=== PATIENT | female | born 1935 | race Caucasian/White ===

== ENCOUNTER 2017-09-21 22:59 | Emergency (ER) | payer OTHER, BC ==
[~2017-09-21] VITALS: Ht 165.1 cm; Wt 50.0 kg
[~2017-09-21 22:59] MED LIST: ASPIR 8181 M1 PO; COLCRYS0.6 MG PO; COREG12.5 M1 PO; COREG6.25 M1 PO; HYDROCHLOROTHIA25 MG PO; LOW DOSE ASPIRI81 M2 PO; MULTIVITAMIN1 EAC2 PO; OMEGA 3-6-91200 MG PO; RECLAST5 MG/100 M IV; SUPER CALCIUM600 MG PO; TYLENOL REGULA325 MG PO; VIT B; VIT D; VOLTAREN 1% GE100 GM TP; ZOCOR20 MG PO
[2017-09-21 23:51] LABS: HEMOGLOBIN 13.5 G/DL (11.9-15.5); MCH 31.1 PG (29.0-34.0); MCHC 33.8 G/DL (30.0-36.0); MCV 92.2 FL (83-99); PLATELET COUNT 163 K/uL (156-360); RBC DIS.WIDTH-CV 14.5 % (11.8-14.6); RBC DIS.WIDTH-SD 49.3 % (39-53); RED BLOOD COUNT 4.34 M/uL (3.80-5.20); WHITE BLOOD COUNT 7.5 K/uL (4.1-10.2)
[2017-09-22 00:03] LABS: ALBUMIN 3.1 g/dL (3.2-4.8)
[2017-09-22 00:04] LABS: CHLORIDE 103 mEq/L (99-109); POTASSIUM 3.9 mEq/L (3.7-5.4); SODIUM 139 mEq/L (136-147)
[2017-09-22 00:06] LABS: GLUCOSE 104 mg/dL (70-99); TOTAL PROTEIN 6.5 g/dL (6.4-8.3)
[2017-09-22 00:08] LABS: TOTAL BILIRUBIN 0.7 mg/dL (0.0-1.0)
[2017-09-22 00:09] LABS: ALKALINE PHOSPHATASE 113 IU/L (3-129)
[2017-09-22 00:10] LABS: CREATININE 0.9 mg/dL (0.6-1.3); GFR ESTIMATE (CALCULATED) > 59 mL/min/
[2017-09-22 00:11] LABS: AST (GOT) 24 IU/L (2-34); UREA NITROGEN (BUN) 23 mg/dL (9-23)
[2017-09-22 00:12] LABS: TROP-I INTERPRETATION NEGATIVE; TROPONIN-I 0.02 ng/mL (0.0-0.30)
[2017-09-22 00:13] LABS: ALT (GPT) 16 IU/L (3-49)
[2017-09-22 02:39] LABS: APPEARANCE SL.HAZY ((CLEAR)); BILIRUBIN NEGATIVE; BLOOD NEGATIVE; COLOR YELLOW ((YELLOW)); GLUCOSE (STRIP) NEGATIVE; KETONES NEGATIVE; LEUKOCYTES TRACE; NITRITE NEGATIVE; PROTEIN (STRIP) NEGATIVE; SPECIFIC GRAVITY 1.019 (1.000-1.030)
[2017-09-22 02:47] LABS: BACTERIA RARE /HPF; EPITHELIAL CELLS RARE /HPF; HYALINE CASTS 0-5 /LPF; MUCUS TRACE /LPF; UCUL ADDED? NO; WHITE BLOOD CELLS 0-5 /HPF (0-5)
[2017-09-22] MEDS ORDERED: AMOXICILLIN500 MG PO (02:59)
[2017-09-22] MEDS ORDERED: NYSTATIN100000 UN1 PO (02:59)
[2017-09-22 03:19] VITALS: BP 142/77
[2017-09-22 08:20] LABS: THYROTROPIN (TSH) 3.2 MIU/L (0.4-5.5)
== END 2017-09-22 03:33 | disposition home or self-care (01) ==
LOC: EME 22:59
PROVIDERS: Emergency Medicine
DX: R41.82 Altered mental status, unspecified (principal); R53.1 Weakness; R29.6 Repeated falls; R53.83 Other fatigue; R91.8 Other nonspecific abnormal finding of lung field; K05.10 Chronic gingivitis, plaque induced; B37.0 Candidal stomatitis; G30.9 Alzheimer's disease, unspecified; F02.80 Dementia in other diseases classified elsewhere, unspecified severity, without behavioral disturbance, psychotic disturbance, mood disturbance, and anxiety; S05.11XA Contusion of eyeball and orbital tissues, right eye, initial encounter; W19.XXXA Unspecified fall, initial encounter; I10 Essential (primary) hypertension; Z85.3 Personal history of malignant neoplasm of breast
CPT/HCPCS: 70450; 71010; 80053; 81003; 84443; 84484; 85027; 99281; 99285

== ENCOUNTER 2018-01-10 09:39 | Emergency (ER) | payer OTHER, BC ==
[~2018-01-10] VITALS: Ht 162.6 cm; Wt 45.2 kg
[~2018-01-10 09:39] MED LIST changes: +AMOXICILLIN500 MG PO; +NYSTATIN100000 UN1 PO
[2018-01-10 10:36] LABS: HEMATOCRIT 43.2 % (36.0-46.0); HEMOGLOBIN 14.9 G/DL (11.9-15.5); MCH 31.7 PG (29.0-34.0); MCHC 34.5 G/DL (30.0-36.0); MCV 91.9 FL (83-99); PLATELET COUNT 257 K/uL (156-360); RBC DIS.WIDTH-SD 47.7 % (39-53); WHITE BLOOD COUNT 10.2 K/uL (4.1-10.2)
[2018-01-10 10:50] LABS: CHLORIDE 104 mEq/L (99-109); POTASSIUM 3.8 mEq/L (3.7-5.4); SODIUM 139 mEq/L (136-147)
[2018-01-10 10:52] LABS: GLUCOSE 103 mg/dL (70-99)
[2018-01-10 10:56] LABS: CREATININE 0.7 mg/dL (0.6-1.3); GFR ESTIMATE (CALCULATED) > 59 mL/min/
[2018-01-10 10:57] LABS: UREA NITROGEN (BUN) 21 mg/dL (9-23)
[2018-01-10 11:00] LABS: TROP-I INTERPRETATION NEGATIVE; TROPONIN-I 0.01 ng/mL (0.0-0.30)
[2018-01-10 11:48] LABS: APPEARANCE CLEAR ((CLEAR)); BILIRUBIN NEGATIVE; BLOOD NEGATIVE; COLOR YELLOW ((YELLOW)); GLUCOSE (STRIP) NEGATIVE; KETONES 20; LEUKOCYTES NEGATIVE; NITRITE NEGATIVE; PROTEIN (STRIP) NEGATIVE; SPECIFIC GRAVITY 1.023 (1.000-1.030)
[2018-01-10 12:49] VITALS: BP 187/98
== END 2018-01-10 12:50 | disposition home or self-care (01) ==
LOC: EME 09:39
PROVIDERS: Nurse Practitioner Family
PROC: 3E0234Z Introduction of Serum, Toxoid and Vaccine into Muscle, Percutaneous Approach (ICD-10-PCS; principal; 2018-01-10)
DX: R55 Syncope and collapse (principal); S61.411A Laceration without foreign body of right hand, initial encounter; W18.39XA Other fall on same level, initial encounter; M25.551 Pain in right hip; M25.552 Pain in left hip; G30.9 Alzheimer's disease, unspecified; F02.80 Dementia in other diseases classified elsewhere, unspecified severity, without behavioral disturbance, psychotic disturbance, mood disturbance, and anxiety; I25.2 Old myocardial infarction; I10 Essential (primary) hypertension; Z85.3 Personal history of malignant neoplasm of breast; Z23 Encounter for immunization
CPT/HCPCS: 71046; 72170; 80048; 81003; 84484; 85027; 93005; 99281; 99284